=== PATIENT | male | born 1935 | race Caucasian/White ===

== ENCOUNTER 2020-09-08 22:58 | Inpatient (IN) | payer MEDICARE ==
[~2020-09-08] VITALS: Ht 182.9 cm; Wt 85.4 kg
[2020-09-08] MEDS ORDERED: SODIUM CHLORIDE 0.9% 1,000 ML IV ONE (23:30)
[2020-09-09 00:15] LABS: BASOPHILS % 0.4 % (0.0-2.0); EOSINOPHILS % 0.8 % (0.0-5.0); HEMATOCRIT. 44.2 % (42.0-52.0); HEMOGLOBIN. 14.4 g/dL (14.0-18.0); LYMPHOCYTES % 7.4 % (20.0-50.0); MEAN CORPUSCULAR HEMOGLOBIN 28.7 pg (28.0-32.0); MEAN CORPUSCULAR VOLUME 88.5 fL (80.0-94.0); MEAN PLATELET VOLUME 8.7 fl (7.4-10.4); MONOCYTES % 5.9 % (2.0-8.0); NEUTROPHILS % 85.5 % (40.0-76.0); PLATELET 233 x1000/uL (130-400); RED CELL DISTRIBUTION WIDTH 13.6 % (11.6-14.6)
[2020-09-09 00:22] LABS: CHLORIDE 101 mEq/L (98-107)
[2020-09-09 00:26] LABS: ETHANOL BLOOD < 10 mg/dL
[2020-09-09 00:31] LABS: CREATINE KINASE 97 IU/L (39-308)
[2020-09-09 00:45] LABS: PARTIAL THROMBOPLASTIN TIME 25.9 sec (23.4-31.0)
[2020-09-09] MEDS ORDERED: PIPERACILLIN/TAZ 3.375G PREMIX 50 ML IV NR (00:45)
[2020-09-09] MEDS ORDERED: VANCOMYCIN 1 G PREMIX 200 ML IV SCH (00:45)
[2020-09-09] MEDS ORDERED: PIPERACILLIN/TAZOBACTAM 3.375GM/50ML PREMIX IV ONE (00:45)
[2020-09-09] MEDS ORDERED: SODIUM CHLORIDE 0.9% 1,500 ML IV ONE (00:45)
[2020-09-09 01:28] LABS: CLARITY URINE CLEAR (CLEAR); COLOR URINE YELLOW (YELLOW); KETONES URINE NEGATIVE (NEGATIVE); LEUKOCYTE ESTERASE URINE NEGATIVE (NEGATIVE); NITRITE URINE NEGATIVE (NEGATIVE); OCCULT BLOOD URINE NEGATIVE (NEGATIVE); PH URINE 5.5 (4.5-8.0); PROTEIN URINE TRACE (NEGATIVE); SPECIFIC GRAVITY URINE 1.022 (1.005-1.030)
[2020-09-09 01:37] LABS: *BENZODIAZEPINES SCREEN URINE NEGATIVE (NEGATIVE); *COCAINE SCREEN URINE NEGATIVE (NEGATIVE); CANNABINOID URINE SCREEN NEGATIVE (NEGATIVE); METHADONE URINE SCREEN NEGATIVE (NEGATIVE); OPIATES URINE SCREEN NEGATIVE (NEGATIVE); PHENCYCLIDINE URINE SCREEN NEGATIVE (NEGATIVE)
[2020-09-09 01:38] LABS: *AMPHETAMINES SCREEN URINE NEGATIVE (NEGATIVE); *BARBITURATES SCREEN URINE NEGATIVE (NEGATIVE)
[2020-09-09] MEDS ORDERED: ASPIRIN 325MG EC TABLET PO ONE (02:15)
[2020-09-09 08:00] VITALS: BP 160/87
[2020-09-09 10:00] VITALS: BP 188/95
[2020-09-09] MEDS ORDERED: ACETAMINOPHEN 325MG TABLET PO PRN (10:15)
[2020-09-09] MEDS ORDERED: ONDANSETRON HCL 4MG/2ML INJ IV PRN (10:15)
[2020-09-09] MEDS: ENOXAPARIN 40MG/0.4ML SYR SUBCUT SCH (11:46)
[2020-09-09 12:00] VITALS: BP 169/94
[2020-09-09 12:25] LABS: HEMATOCRIT 42.3 % (42.0-52.0); HEMOGLOBIN 13.9 g/dL (14.0-18.0)
[2020-09-09 13:40] VITALS: BP 167/57
[2020-09-09] MEDS: SODIUM CHLORIDE 0.9% 1,000 ML IV SCH (14:10)
[2020-09-09 16:00] VITALS: BP 170/80
[2020-09-09] MEDS: HYDRALAZINE 20MG/ML VIAL IV PRN (17:21)
[2020-09-09 19:49] LABS: T4 FREE 1.32 ng/dL (0.76-1.46)
[2020-09-09 19:55] LABS: FOLIC ACID (FOLATE) SERUM 6.3 ng/mL (>5.38)
[2020-09-09 20:00] VITALS: BP 103/70
[2020-09-09] MEDS ORDERED: ATORVASTATIN CALCIUM 40MG TABLET PO SCH (21:00)
[2020-09-10] VITALS: BP 112/60
[2020-09-10 04:00] VITALS: BP 126/71
[2020-09-10] MEDS: SODIUM CHLORIDE 0.9% 1,000 ML IV SCH (05:24)
[2020-09-10] MEDS: HYDRALAZINE 20MG/ML VIAL IV PRN (05:24)
[2020-09-10 06:30] VITALS: BP 126/71
[2020-09-10 07:01] LABS: BASOPHILS % 0.6 % (0.0-2.0); EOSINOPHILS % 2.7 % (0.0-5.0); HEMATOCRIT. 41.2 % (42.0-52.0); HEMOGLOBIN. 13.9 g/dL (14.0-18.0); LYMPHOCYTES % 18.7 % (20.0-50.0); MEAN CORPUSCULAR HEMOGLOBIN 30.1 pg (28.0-32.0); MEAN PLATELET VOLUME 8.8 fl (7.4-10.4); MONOCYTES % 7.5 % (2.0-8.0); NEUTROPHILS % 70.5 % (40.0-76.0); PLATELET 199 x1000/uL (130-400); RED BLOOD CELL COUNT 4.63 mill/uL (4.7-6.1); RED CELL DISTRIBUTION WIDTH 13.5 % (11.6-14.6)
[2020-09-10] MEDS: ENOXAPARIN 40MG/0.4ML SYR SUBCUT SCH (08:26)
[2020-09-10] MEDS ORDERED: ASPIRIN 81MG TABLET PO SCH (09:00)
== END 2020-09-10 09:15 | disposition left against medical advice (07) | DRG 67 ==
LOC: ER 22:58 → 8WST 09-09 02:10 → ENRESERV 09-09 07:36
PROVIDERS: ADMIT Internal Medicine; ATTEND Internal Medicine
DX: I65.22 Occlusion and stenosis of left carotid artery (principal); G92 Toxic encephalopathy; E87.2 Acidosis; N17.9 Acute kidney failure, unspecified; I10 Essential (primary) hypertension; I70.0 Atherosclerosis of aorta; M19.90 Unspecified osteoarthritis, unspecified site; Z87.891 Personal history of nicotine dependence; Z79.899 Other long term (current) drug therapy
CPT/HCPCS: 36415; 70496; 70498; 70551; 71045; 80048; 80053; 80305; 80307; 80320; 80329; 81003; 82140; 82550; 82607; 82746; 82962; 83036; 83605; 84145; 84439; 84443; 84481; 84484; 85014; 85018; 85025; 92610; 93005; 93306; 93970; 97162; 99291; J0360; J1650; J2543; J3370; J7030; G0480